=== PATIENT | female | born 1980 | race Two or more races ===

== ENCOUNTER 2021-07-28 21:56 | Emergency (ER) | payer OTHER ==
[~2021-07-28] VITALS: Ht 154.9 cm; Wt 65.8 kg
[2021-07-28] MEDS ORDERED: CYCLOBENZAPRINE10 MG PO (23:10)
== END 2021-07-28 23:49 | disposition home or self-care (01) ==
LOC: ER 21:56
DX: M54.9 Dorsalgia, unspecified (principal)

== ENCOUNTER 2023-05-02 08:50 | Emergency (ER) | payer OTHER ==
[~2023-05-02] VITALS: Ht 154.9 cm; Wt 65.3 kg
[~2023-05-02 08:50] MED LIST: CYCLOBENZAPRINE10 MG PO
[2023-05-02 10:01] LABS: HEMATOCRIT 39.5 % (36.0-45.00); MEAN CORPUSCULAR HEMOGLOBIN 27.5 pg (27.00-32.0); MEAN CORPUSCULAR HGB CONC 32.8 g/dl (32.0-36.0); PLATELET COUNT 256 K/uL (150-450); RED BLOOD COUNT 4.71 M/uL (4.00-6.00); RED CELL DISTRIBUTION WIDTH 13.6 % (11.5-14.5)
[2023-05-02 10:15] LABS: PH,URINE 7.5 (5.0-8.0); URINE APPEARANCE Cloudy; URINE BILIRRUBIN Negative (NEGATIVE); URINE COLOR Yellow; URINE GLUCOSE Negative (NEGATIVE); URINE LEUKOCYTE Negative; URINE NITRATE Negative; URINE PROTEIN Trace (NEGATIVE)
[2023-05-02 10:19] LABS: URINE BACTERIA 178.8 uL (0.0-1933); URINE EPITHELIAL CELLS 10.6 uL (0.0-38.8); URINE RBC 15.9 uL (0.0-20.8); URINE WBC 6.4 uL (0.0-23.2)
[2023-05-02 10:33] LABS: CALCIUM 8.8 mg/dL (8.5-10.1); CREATININE SERUM 0.73 mg/dL (0.55-1.02); GFR 86.61; POTASSIUM 3.94 mEq/L (3.5-5.1)
[2023-05-02 10:34] LABS: URINE BLOOD TRACE
== END 2023-05-02 15:12 | disposition home or self-care (01) ==
LOC: ER 08:51
PROVIDERS: Emergency Medicine
DX: K52.89 Other specified noninfective gastroenteritis and colitis (principal); R19.7 Diarrhea, unspecified; R11.10 Vomiting, unspecified; Z88.6 Allergy status to analgesic agent

== ENCOUNTER 2024-01-06 09:25 | Emergency (ER) | payer OTHER ==
[~2024-01-06] VITALS: Ht 154.9 cm; Wt 65.8 kg
[2024-01-06 11:32] LABS: HEMATOCRIT 39.9 % (36.0-45.00); HEMOGLOBIN 13.1 g/dL (12.0-15.00); MEAN CELL VOLUME 83.9 fL (80.00-100.00); MEAN CORPUSCULAR HEMOGLOBIN 27.6 pg (27.00-32.0); MEAN CORPUSCULAR HGB CONC 32.9 g/dl (32.0-36.0); PLATELET COUNT 248 K/uL (150-450); RED BLOOD COUNT 4.76 M/uL (4.00-6.00); RED CELL DISTRIBUTION WIDTH 14.4 % (11.5-14.5)
== END 2024-01-06 13:56 | disposition home or self-care (01) ==
LOC: ER 09:26
PROVIDERS: General Practice
DX: B34.9 Viral infection, unspecified (principal); Z88.6 Allergy status to analgesic agent

== ENCOUNTER 2024-09-23 14:27 | Emergency (ER) | payer OTHER ==
[~2024-09-23] VITALS: Ht 154.9 cm; Wt 68.0 kg
== END 2024-09-23 19:12 | disposition home or self-care (01) ==
LOC: ER 14:31
DX: M25.572 Pain in left ankle and joints of left foot (principal); Z88.6 Allergy status to analgesic agent

== ENCOUNTER → 2024-10-08 | Emergency (ER) | payer OTHER ==
[~2024-10-08] VITALS: Ht 154.9 cm; Wt 68.0 kg
[~2024-10-08] MED LIST changes: +DEXAMETHASONE SODIUM PHOSPHATE 4 MG/ML VIAL IM STA; +DEXAMETHASONE SODIUM PHOSPHATE 4 MG/ML VIAL ONE; +TRAMADOL HCL 50 MG TABLET PO STA
== END | disposition home or self-care (01) ==
LOC: ER 11:22
DX: M79.672 Pain in left foot (principal); Z88.6 Allergy status to analgesic agent

== ENCOUNTER 2024-10-10 10:12 | Outpatient (CLI) | payer OTHER ==
[~2024-10-10 10:12] MED LIST changes: -DEXAMETHASONE SODIUM PHOSPHATE 4 MG/ML VIAL IM STA; -DEXAMETHASONE SODIUM PHOSPHATE 4 MG/ML VIAL ONE; -TRAMADOL HCL 50 MG TABLET PO STA
== END 2024-10-10 10:23 | disposition home or self-care (01) ==
LOC: RAD 10:12
PROVIDERS: ATTEND Orthopaedic Surgery
DX: M25.572 Pain in left ankle and joints of left foot (principal)